=== PATIENT | female | born 1970 | race Caucasian/White ===

== ENCOUNTER 2019-03-18 12:55 | Emergency (ER) | payer BC ==
[2019-03-18] MEDS ORDERED: Zofran 4 MG/2 ML VIAL IV ONE ×2 (14:04→16:35)
[2019-03-18] MEDS ORDERED: Sodium Chloride 0.9% 1000 ML 1,000 ML IV STA (14:04)
[2019-03-18] MEDS ORDERED: MORPHINE SULFATE 4 MG INJ IV ONE (14:04)
[2019-03-18 14:10] LABS: Absolute Neutrophil Ct (ANC) 11.04 (1.4-6.9); BASOPHIL % 0.3 % (0.0-0.4); Basophil (Absolute #) 0.04 (0-0.4); Eosinophil % 0.5 % (0.00-5.0); Eosinophil (Absolute #) 0.07 (0-0.5); Hematocrit 39.9 % (35-47); Hemoglobin 13.3 gm/dl (12.0-16.0); Lymphocyte (Absolute #) 1.04 (1.0-4.6); Lymphocytes % 8.2 % (24.0-44.0); Mean Cell Volume 88.9 fl (78-100); Mean Corpuscular Hemoglobin 29.6 pg (26-32); Mean Corpuscular Hgb Concent. 33.3 g/dl (32-36); Mean Platelet Volume 10.5 fl (7.5-11.0); Monocyte (Absolute #) 0.54 (0.0-1.3); Monocytes % 4.2 % (0.0-12.0); Neutrophil % 86.8 % (36.0-66.0); Platelet Count 360 K/mm3 (150-450); Red Blood Count 4.49 M/mm3 (4.1-5.4); Red Cell Distribution Width 14.1 % (11.5-14.0); White Blood Count 12.7 K/mm3 (4.0-10.5)
[2019-03-18 14:15] LABS: ALBUMIN 4.5 g/dL (3.5-5.0); ALKALINE PHOSPHATASE 90 U/L (38-126); AMYLASE 64 U/L (30-110); ANION GAP 15.1 MEQ/L (5-15); BLOOD UREA NITROGEN 12 mg/dL (7-17); CHLORIDE 103 mmol/L (98-107); Calcium 9.4 mg/dL (8.4-10.2); Carbon Dioxide 25 mmol/L (22-30); Creatinine 1 0.55 mg/dL (0.52-1.04); Glucose 138 mg/dL (74-106); LIPASE 86 U/L (23-300); Potassium 3.7 mmol/L (3.5-5.1); SGOT/AST 43 U/L (14-36); SGPT/ALT 30 U/L (0-35); SODIUM 139 mmol/L (137-145)
[2019-03-18] MEDS ORDERED: MORPHINE SULFATE 4 MG INJ ONE (14:28)
[2019-03-18] MEDS ORDERED: Zofran 4 MG/2 ML VIAL ONE ×2 (14:28→16:36)
[2019-03-18] MEDS ORDERED: Sodium Chloride 0.9% 1000 ML 1,000 ML ONE (14:29)
[2019-03-18 16:15] LABS: Appearance CLEAR (CLEAR); Bacteria RARE /HPF (NEGATIVE); Bilirubin NEGATIVE (NEGATIVE); Blood MODERATE Ery/ul (0-5); Epithelial Cells FEW /HPF (FEW); Glucose NEGATIVE (NEGATIVE); Ketones TRACE (NEGATIVE); Leukocyte Esterase NEGATIVE (NEGATIVE); Mucus SLIGHT /HPF (NEGATIVE); Nitrite NEGATIVE (NEGATIVE); Protein,Urine Dip 30 (Negative); Specific Gravity 1.015 (1.005-1.025); Urobilinogen NEGATIVE mg/dL (0-1); WBC 0-2 /HPF (0-5)
[2019-03-18 16:25] VITALS: BP 117/75; PULSE 88; O2SAT 98
--- NOTE | 2019-03-18 16:43 | ERPHSYRPT ---
- History of Present Illness Time Seen by Provider: 03/18/19 13:36 Historian: patient Exam Limitations: no limitations Patient Subjective Stated Complaint: vomiting since 0100 less than 10 times, headache, chills, Triage Nursing Assessment: pt alert, resp easy, skin w/d/p. walked in, mucus membranes moist Physician History: 38 years old female presented in the ER with chief complaint of sudden onset nausea and vomiting along with upper abdominal pain since morning. She has multiple episodes of projectile and nonbilious vomiting but no hematemesis. She is feeling fatigued and tired. She's not able to hold anything down. Abdominal pain is mild to moderate dull aching in the upper abdomen with no radiation. Denies any diarrhea. No sick contacts. But is brought to Timing/Duration: today, intermittent Quality: cramping Abdominal Pain Onset Location: epigastric Pain Radiation: no radiation Severity of Pain-Max: moderate Severity of Pain-Current: mild Modifying Factors: Improves With: movement Associated Symptoms: nausea, vomiting Allergies/Adverse Reactions: No Known Drug Allergies Allergy (Unverified 03/18/19 13:13) Home Medications: Omeprazole 20 mg DAILY 03/18/19 [History] Hx Influenza Vaccination/Date Given: No Hx Pneumococcal Vaccination/Date Given: No Immunizations Up to Date: Yes - Review of Systems Constitutional: Fatigue Eyes: No Symptoms (PUJA) Ears, Nose, & Throat: No Symptoms Respiratory: No Symptoms Cardiac: No Symptoms Abdominal/Gastrointestinal: Abdominal Pain, Nausea, Vomiting Genitourinary Symptoms: No Symptoms Skin: No Symptoms Neurological: No Symptoms Psychological: No Symptoms Endocrine: No Symptoms Hematologic/Lymphatic: No Symptoms Immunological/Allergic: No Symptoms - Past Medical History Pertinent Past Medical History: Yes GI Medical History: GERD Psycho-Social History: Depression - Past Surgical History Past Surgical History: Yes Female Surgical History: Section - Social History Smoking Status: Never smoker Exposure to second hand smoke: Yes Drug Use: none Patient Lives Alone: No - Female History Hx Last Menstrual Period: last week Hx Now: No - Nursing Vital Signs Nursing Vital Signs: Initial Vital Signs Temperature 117 F 03/18/19 13:08 Pulse Rate 95 H 03/18/19 13:08 Respiratory Rate 18 03/18/19 13:08 Blood Pressure 153/83 03/18/19 13:08 O2 Sat by Pulse Oximetry 95 03/18/19 13:08 Pain Scale Pain Intensity 8 - Physical Exam General Appearance: no apparent distress Eye Exam: eyes nml inspection Ears, Nose, Throat Exam: normal ENT inspection Neck Exam: normal inspection, non-tender, full range of motion Respiratory Exam: normal breath sounds, lungs clear, respiratory distress Cardiovascular Exam: regular rate/rhythm, normal heart sounds, normal peripheral pulses Gastrointestinal/Abdomen Exam: soft, normal bowel sounds, tenderness (mild epigastric/LUQ), No distention, No guarding, No rebound, No hernia Back Exam: normal inspection, normal range of motion, No CVA tenderness Extremity Exam: normal inspection, normal range of motion, pelvis stable Neurologic Exam: alert, oriented x 3, cooperative Skin Exam: normal color SpO2 Interpretation: normal SpO2: 98 O2 Delivery: Room Air - Course Nursing assessment & vital signs reviewed: Yes Ordered Tests: Active Orders 24 hr Category Date Time Status IV Insertion STAT Care 03/18/19 14:04 Active NPO (ED) STAT Care 03/18/19 14:04 Active OBSTR/ACUTE ABDOMEN SERIES Stat Exams 03/18/19 14:05 Taken AMYLASE Stat Lab 03/18/19 14:04 Completed CBC W DIFF Stat Lab 03/18/19 14:04 Completed CMP Stat Lab 03/18/19 14:04 Completed CULTURE,URINE Stat Lab 03/18/19 15:49 Received LIPASE Stat Lab 03/18/19 14:04 Completed UA W/RFX UR CULTURE Stat Lab 03/18/19 15:49 Completed Medication Summary Discontinued Medications Generic Name Dose Route Start Last Admin Trade Name Freq PRN Reason Stop Dose Admin Sodium Chloride 1,000 mls @ 999 mls/hr 03/18/19 14:04 03/18/19 14:31 Sodium Chloride 0.9% 1000 Ml IV 03/18/19 15:04 999 mls/hr .Q1H1M STA Administration Sodium Chloride Confirm 03/18/19 14:29 Sodium Chloride 0.9% 1000 Ml Administered 03/18/19 14:30 Dose 1,000 mls @ ud .ROUTE .STK-MED ONE Morphine Sulfate 4 mg 03/18/19 14:04 03/18/19 14:31 Morphine Sulfate 4 Mg Inj IV 03/18/19 14:05 4 mg STAT ONE Administration Morphine Sulfate Confirm 03/18/19 14:28 Morphine Sulfate 4 Mg Inj Administered 03/18/19 14:29 Dose 4 mg .ROUTE .STK-MED ONE Ondansetron HCl 4 mg 03/18/19 14:04 03/18/19 14:31 Zofran 4 Mg/2 Ml Vial IV 03/18/19 14:05 4 mg STAT ONE Administration Ondansetron HCl Confirm 03/18/19 14:28 Zofran 4 Mg/2 Ml Vial Administered 03/18/19 14:29 Dose 4 mg .ROUTE .STK-MED ONE Ondansetron HCl 4 mg 03/18/19 16:35 Zofran 4 Mg/2 Ml Vial IV 03/18/19 16:36 STAT ONE Lab/Rad Data: Laboratory Result Diagrams 03/18/19 14:04 03/18/19 14:04 Laboratory Results 03/18/19 03/18/19 03/18/19 Range/Units 15:49 14:04 14:04 WBC 12.7 H (4.0-10.5) K/mm3 RBC 4.49 (4.1-5.4) M/mm3 Hgb 13.3 (12.0-16.0) gm/dl Hct 39.9 (35-47) % MCV 88.9 (78-100) fl MCH 29.6 (26-32) pg MCHC 33.3 (32-36) g/dl RDW 14.1 H (11.5-14.0) % Plt Count 360 (150-450) K/mm3 MPV 10.5 (7.5-11.0) fl Gran % 86.8 H (36.0-66.0) % Eos # (Auto) 0.07 (0-0.5) Absolute Lymphs (auto) 1.04 (1.0-4.6) Absolute Monos (auto) 0.54 (0.0-1.3) Lymphocytes % 8.2 L (24.0-44.0) % Monocytes % 4.2 (0.0-12.0) % Eosinophils % 0.5 (0.00-5.0) % Basophils % 0.3 (0.0-0.4) % Absolute Granulocytes 11.04 H (1.4-6.9) Basophils # 0.04 (0-0.4) Sodium 139 (137-145) mmol/L Potassium 3.7 (3.5-5.1) mmol/L Chloride 103 (98-107) mmol/L Carbon Dioxide 25 (22-30) mmol/L Anion Gap 15.1 H (5-15) MEQ/L BUN 12 (7-17) mg/dL Creatinine 0.55 (0.52-1.04) mg/dL Estimated GFR > 60.0 ML/MIN Glucose 138 H (74-106) mg/dL Calcium 9.4 (8.4-10.2) mg/dL Total Bilirubin 0.50 (0.2-1.3) mg/dL AST 43 H (14-36) U/L ALT 30 (0-35) U/L Alkaline Phosphatase 90 (38-126) U/L Serum Total Protein 8.0 (6.3-8.2) g/dL Albumin 4.5 (3.5-5.0) g/dL Amylase 64 (30-110) U/L Lipase 86 (23-300) U/L Urine Color YELLOW (YELLOW) Urine Appearance CLEAR (CLEAR) Urine pH 6.0 (5-6) Ur Specific [place] 1.015 (1.005-1.025) Urine Protein 30 (Negative) Urine Ketones TRACE (NEGATIVE) Urine Blood MODERATE (0-5) Roque/ul Urine Nitrite NEGATIVE (NEGATIVE) Urine Bilirubin NEGATIVE (NEGATIVE) Urine Urobilinogen NEGATIVE (0-1) mg/dL Ur Leukocyte Esterase NEGATIVE (NEGATIVE) Urine WBC (Auto) 0-2 (0-5) /HPF Urine RBC (Auto) 6-10 (0-2) /HPF U Epithel Cells (Auto) FEW (FEW) /HPF Urine Bacteria (Auto) RARE (NEGATIVE) /HPF Urine Mucus (Auto) SLIGHT (NEGATIVE) /HPF Urine Culture Reflexed YES (NO) Urine Glucose NEGATIVE (NEGATIVE) mg/dL - Progress Progress: improved, re-examined Progress Note: she is given IV fluids and Zofran along with a dose of morphine, reevaluation feeling better. Patient workup showed a white count of 12, grossly unremarkable chemistries. Patient back to the bathroom and got nauseated a cane and is given another dose of Zofran. Acute abdomen series did not show any air fluid levels, obstruction, perforation etc. I believe she has while etiology gastritis with vomiting, I would give her Zofran to go home and recommended taking Tylenol as needed. repeated evaluation/exam did not have any peritoneal signs. Do not think she needs any further workup in the ER.discussed signs/symptoms of worsening needing return to the ER which patient seems understanding 03/18/19 16:41 Counseled pt/family regarding: lab results, diagnosis, need for follow-up, rad results - Departure Departure Disposition: Home Clinical Impression: Upper abdominal pain, unspecified Nausea & vomiting Qualifiers: Vomiting type: unspecified Vomiting Intractability: non-intractable Qualified Code(s): R11.2 - Nausea with vomiting, unspecified Condition: Stable Critical Care Time: No Referrals: ALEX STEVENS DO [Primary Care Provider] - Instructions: Vomiting -- Adult Additional Instructions: take Tylenol as needed for pain. Take Zofran as needed for nausea or vomiting. Drink plenty of fluids. Follow up with primary care physician for reevaluation. Return to ER for intractable vomiting, abdominal pain, fever chills etc.
--- NOTE | 2019-03-18 20:10 | XRAY ---
Indication: Nausea and emesis. Comparison: Chest exam January 10, 2019. 2 views of the abdomen nonacute and nonobstructed with mild scattered colonic fecal debris. Solid organs unremarkable. Osseous structures intact with mild multilevel degenerative spondylosis and mild bilateral hip degenerative arthropathy. Single PA chest again demonstrates normal heart, lungs, and bony thorax again with incidental left base calcified granuloma. Impression: Negative abdomen. Stable nonacute one view chest again with evidence for old granulomatous disease.
== END 2019-03-18 16:50 | disposition home or self-care (01) ==
LOC: ED 12:55
DX: R10.10 Upper abdominal pain, unspecified (principal)
CPT/HCPCS: 36000; 36415; 74022; 80053; 81001; 82150; 83690; 85025; 87086; 96360; 96374; 96375; 96376; 99284; J2270; J2405

== ENCOUNTER 2020-09-30 07:02 | Day surgery (SDC) | payer BC ==
[2020-09-30] MEDS ORDERED: Lactated Ringers 1,000 ML IV ONE (07:20)
[2020-09-30] MEDS ORDERED: CEFAZOLIN 2 GM-D5W BAG** 2 GM/50 ML ML IV ONE (07:20)
[2020-09-30] MEDS ORDERED: Lactated Ringers 1,000 ML IV SCH (07:30)
[2020-09-30] MEDS ORDERED: CEFAZOLIN 2 GM-D5W BAG** 2 GM/50 ML ML IV SCH (07:30)
[2020-09-30] MEDS ORDERED: Versed 2 MG/2 ML Injection ONE (08:23)
[2020-09-30] MEDS ORDERED: Decadron 4 MG INJ ONE ×2 (08:23→08:59)
[2020-09-30] MEDS ORDERED: Xylocaine-Mpf 2% 5 Ml Vial ONE ×2 (08:23→08:59)
[2020-09-30] MEDS ORDERED: SUBLIMAZE 100 MCG/2 ML ONE (08:23)
[2020-09-30 08:38] LABS: Appearance SLIGHTLY CLOUDY (CLEAR); Bilirubin NEGATIVE (NEGATIVE); Blood NEGATIVE Ery/ul (0-5); Epithelial Cells FEW /HPF (FEW); Glucose NEGATIVE (NEGATIVE); Ketones NEGATIVE (NEGATIVE); Leukocyte Esterase NEGATIVE (NEGATIVE); Mucus SLIGHT /HPF (NEGATIVE); Nitrite NEGATIVE (NEGATIVE); Protein,Urine Dip NEGATIVE (Negative); Urobilinogen NEGATIVE mg/dL (0-1)
[2020-09-30] MEDS ORDERED: Zofran 4 MG/2 ML VIAL ONE (08:59)
[2020-09-30] MEDS ORDERED: DIPRIVAN 200 MG/20 ML IV ONE (08:59)
[2020-09-30 10:28] VITALS: PULSE 75
[2020-09-30 10:37] VITALS: BP 139/87; O2SAT 96
--- NOTE | 2020-10-01 10:05 | OP ---
SURGERY DATE/TIME: 09/30/2020 0900 PREOPERATIVE DIAGNOSIS: Abnormal uterine bleeding. POSTOPERATIVE DIAGNOSIS: Abnormal uterine bleeding. PROCEDURE: Hysteroscopy, D&C with NovaSure ablation. SURGEON: Andrew Gonsales D.O. ELEVATOR CONSTRUCTOR: Sachin Mueller neurology technologist. ANESTHESIA: General. ESTIMATED BLOOD LOSS: Minimal. COMPLICATIONS: None. INDICATIONS: The risks, benefits, indications and alternatives of the procedure were reviewed with the patient prior to the procedure. The patient understood the risk of infection, bleeding, bowel injury, bladder injury, ureteral injury, uterine perforation, pelvic infection, thromboembolic disorder associated with the surgery and desires to have this surgery as a possible means to alleviate her medical condition. DESCRIPTION OF PROCEDURE AND FINDINGS: At this point the patient is taken to the operating room, given general sedation, placed in dorsal lithotomy position, prepped and draped in the usual sterile fashion. A weighted speculum is then placed in the patient's vagina and the anterior lip of the cervix is grasped with a single tooth tenaculum. Endocervical dilators were advanced through the endocervical canal as a means to dilate the cervix and the uterus was sounded to approximately 9 cm. From this point, a 5 mm hysteroscope was then placed in through the endocervical canal where visualization of endometrial lining appeared to be within normal limits with no gross abnormalities located within the endometrial cavity. From this point the hysteroscope was then removed and the curette was then placed into the fundus of the uterus and curettage is performed in all quadrants of the uterus retrieving a moderate amount of tissue. From this point hemostasis is obtained. At this point the NovaSure was then placed was engaged and placed into the fundus of the uterus retracted approximately 1 cm with a length 6.5 cm where the machine was turned on for an ablative time of 44 seconds. At the completion of the ablation the instrument was disengaged and removed from the uterine cavity where it had a width of 2.8 cm. After removal of the Novasure, all instruments were then removed from the patient's vaginal region. The patient was then taken out of dorsal lithotomy position, was taken out of anesthesia and was then taken to the recovery room in stable condition. All instruments and laps were accounted for x2.
== END 2020-09-30 10:32 | disposition home or self-care (01) ==
LOC: SDC 07:02
PROVIDERS: ATTEND Obstetrics & Gynecology
DX: N93.9 Abnormal uterine and vaginal bleeding, unspecified (principal)
CPT/HCPCS: 36415; 81001; 84702; J0690; J1100; J2250; J2405; J2704; J3010

== ENCOUNTER 2022-04-07 01:06 | Emergency (ER) | payer SELFPAY ==
[2022-04-07 01:53] LABS: Absolute Neutrophil Ct (ANC) 4.74 x10^3/uL (1.4-6.9); BASOPHIL % 0.9 % (0.0-0.4); Basophil (Absolute #) 0.06 x10^3/uL (0-0.4); Eosinophil (Absolute #) 0.14 x10^3/uL (0-0.5); Hemoglobin 14.2 g/dL (12.0-16.0); IMMATURE GRAN # 0.02 x10^3u/L (0.00-0.03); IMMATURE GRAN % 0.3 % (0.00-0.4); Lymphocyte (Absolute #) 1.53 x10^3/uL (1.0-4.6); Lymphocytes % 22.1 % (24.0-44.0); Mean Corpuscular Hemoglobin 31.8 pg (26-32); Mean Corpuscular Hgb Concent. 33.8 g/dL (32-36); Mean Platelet Volume 10.3 fL (7.5-11.0); Monocyte (Absolute #) 0.42 x10^3/uL (0.0-1.3); Monocytes % 6.1 % (0.0-12.0); Neutrophil % 68.6 % (36.0-66.0); Platelet Count 270 x10^3/uL (150-450); Red Blood Count 4.47 x10^6/uL (4.1-5.4); Red Cell Distribution Width 12.2 % (11.5-14.0); White Blood Count 6.9 x10^3/uL (4.0-10.5)
[2022-04-07 02:01] LABS: Appearance Clear (Clear); Bacteria None Seen /HPF (None Seen); Bilirubin Negative (Negative); Blood Trace (Negative); Epithelial Cells None Seen /HPF (None Seen); Glucose, Urine Negative (Negative); Hyaline Casts NONE SEEN /LPF (0-2); Ketones Negative (Negative); Leukocyte Esterase Negative (Negative); Nitrite Negative (Negative); Protein,Urine Dip Negative (Negative); RBC 0-2 /HPF (0-5); Specific Gravity <=1.005 (1.005-1.030); Urobilinogen 0.2 mg/dL (0.2); WBC 0-2 /HPF (0-5)
[2022-04-07 02:05] LABS: ACETAMINOPHEN < 10 ug/ml (10-30); ALBUMIN 4.1 g/dL (3.5-5.0); ALKALINE PHOSPHATASE 74 U/L (38-126); ANION GAP 11.9 MEQ/L (5-15); BLOOD UREA NITROGEN 9 mg/dL (7-17); CHLORIDE 110 mmol/L (98-107); Calcium 8.8 mg/dL (8.4-10.2); Carbon Dioxide 26 mmol/L (22-30); Creatinine 1 0.57 mg/dL (0.52-1.04); EST GLOMERULAR FILTRATION RATE > 60.0 ML/MIN; ETHYL ALCOHOL 112 mg/dL (0-10); Glucose 128 mg/dL (74-106); Potassium 3.9 mmol/L (3.5-5.1); SALICYLATE < 1.0 mg/dL (2-20); SGOT/AST 27 U/L (14-36); SGPT/ALT 29 U/L (0-35); SODIUM 144 mmol/L (137-145); Total Protein 6.8 g/dL (6.3-8.2)
[2022-04-07 02:07] LABS: ADD URINE CULTURE? NO (NO)
[2022-04-07 02:12] LABS: Amphetamine,Urine NEGATIVE (NEGATIVE); Barbiturate,Urine NEGATIVE (NEGATIVE); Benzodiazepine,Urine NEGATIVE (NEGATIVE); Cocaine,Urine NEGATIVE (NEGATIVE); Methadone,Urine NEGATIVE (NEGATIVE); Opiate,Urine NEGATIVE (NEGATIVE); PCP,Urine NEGATIVE (NEGATIVE); THC,Urine NEGATIVE (NEGATIVE)
--- NOTE | 2022-04-07 02:13 | ERPHSYRPT ---
- History of Present Illness Time Seen by Provider: 04/07/22 01:25 Source: patient, EMS Exam Limitations: intoxication Patient Subjective Stated Complaint: suicidial ideations without a plan Triage Nursing Assessment: pt presents to ED via medic 1, pt alert and oriented x3, tearful, pt is recently going through a divorce of her of 25 years, pt has drank 4 or 5 bottles of wine tonight at home and called 911 d/t patient stating she didn't want to live anymore. pt states "I just want to be done. I don't want to live. I don't want to be here." pt denies plan, pt has hx of wrist cutting during adolescence and an overdose when she was 28, pt did not attempt to harm self tonight Physician History: This is a 51-year-old obese white female patient of Dr. Shabazz who is going through divorce and has a history of depression. She told her that she does not want to live anymore and has continued to states that in the emergency department. She does not have a plan. 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 Her came back to the house and because of her statements and a history of suicidal issues as an adolescent, he contacted the ambulance and patient was brought into the emergency department voluntarily. She does not have a headache. She has no chest pain. She has no shortness of breath. She has no abdominal pain. She has no nausea symptoms or vomiting at this time. She has no flulike symptoms. Patient has history of hypertension, hypothyroidism, gastroesophageal reflux disease and depression Timing/Duration: today Severity of Symptoms-Max: moderate Severity of Symptoms-Current: moderate Context related to: spouse, other (Patient going through divorce at this time) Suicidal thoughts: other (Thoughts at this time no specific plan) Associated Symptoms: depressed, ingestion (Alcohol) Previous symptoms: same symptoms as today (As an adolescent) Allergies/Adverse Reactions: lisinopril Allergy (Verified 04/07/22 01:13) Cough Home Medications: Amlodipine Besylate [Norvasc] 5 mg PO DAILY 09/23/20 [History] Cyanocobalamin (Vitamin B-12) [Vitamin B-12] 1,000 mcg PO UD 09/23/20 [History] Ergocalciferol (Vitamin D2) [Vitamin D] 50,000 unit PO WEEKLY 09/23/20 [History] Esomeprazole Magnesium [Nexium] 40 mg PO DAILY 09/23/20 [History] Ibuprofen [Ibu] 400 mg PO BID 09/23/20 [History] Levothyroxine Sodium [Levothyroxine] 75 mcg PO DAILY 09/23/20 [History] Multivitamin [One-Daily Multi-Vitamin] 1 each PO DAILY 09/23/20 [History] Paroxetine HCl 20 mg [Paxil 20 MG] 20 mg PO HS 09/23/20 [History] Hx Tetanus, Diphtheria Vaccination/Date Given: Yes Hx Influenza Vaccination/Date Given: No Hx Pneumococcal Vaccination/Date Given: No Immunizations Up to Date: Yes Travel Risk - International Travel Have you traveled outside of the country in past 3 weeks: No - Coronavirus Screening Are you exhibiting any of the following symptoms?: No Close contact with a COVID-19 positive Pt in past 14-21 Days: No - Vaccine Status Have you recieved a Covid-19 vaccination: Yes 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: [facility] - Past Medical History Pertinent Past Medical History: Yes Neurological History: No Pertinent History ENT History: No Pertinent History Cardiac History: Hypertension Respiratory History: Sleep Apnea Endocrine Medical History: No Pertinent History Musculoskeletal History: Arthritis GI Medical History: GERD, Ulcer History: Other Psycho-Social History: Depression Female Reproductive Disorders: Abnormal Uterine Bleeding Other Medical History: frequent bladder infections - Past Surgical History Past Surgical History: Yes Neuro Surgical History: No Pertinent History Cardiac: No Pertinent History Respiratory: No Pertinent History Gastrointestinal: No Pertinent History Genitourinary: No Pertinent History Musculoskeletal: No Pertinent History Female Surgical History: Section, Tubal Ligation Other Surgical History: hemangioma removed from neck - Social History Smoking Status: Never smoker Exposure to second hand smoke: Yes Drug Use: none Patient Lives Alone: Yes - Review of Systems Constitutional: No Symptoms Eyes: No Symptoms Ears, Nose, & Throat: No Symptoms Respiratory: No Symptoms Cardiac: No Symptoms Abdominal/Gastrointestinal: No Symptoms Genitourinary Symptoms: No Symptoms Musculoskeletal: No Symptoms Skin: No Symptoms Neurological: No Symptoms Psychological: Depression, Suicidal Ideations Endocrine: No Symptoms Hematologic/Lymphatic: No Symptoms Immunological/Allergic: No Symptoms All Other Systems: Reviewed and Negative - Nursing Vital Signs Nursing Vital Signs: Initial Vital Signs Temperature 98.9 F 04/07/22 01:14 Pulse Rate 81 04/07/22 01:14 Respiratory Rate 18 04/07/22 01:14 Blood Pressure 153/102 04/07/22 01:14 O2 Sat by Pulse Oximetry 96 04/07/22 01:14 Pain Scale Pain Intensity 0 - Physical Exam General Appearance: no apparent distress, alert, anxiety, obese Eyes, Ears, Nose, Throat Exam: normal ENT inspection, moist mucous membranes Neck Exam: normal inspection, non-tender, supple, full range of motion Respiratory Exam: normal breath sounds, lungs clear, airway intact, No chest tenderness, No respiratory distress Cardiovascular Exam: regular rate/rhythm, normal heart sounds, normal peripheral pulses Gastrointestinal/Abdominal Exam: soft, normal bowel sounds, No tenderness Extremities Exam: normal inspection, normal range of motion, No evidence of injury Neurological Exam: alert, calm, 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 The re is no evidence of any acute ischemic changes.) Ordered Tests: Active Orders 24 hr Category Date Time Status EKG-ER Only STAT Care 04/07/22 01:28 Active Psychiatric Consult STAT Cons 04/07/22 03:04 Active ACETAMINOPHEN Stat Lab 04/07/22 01:50 Completed CBC W DIFF Stat Lab 04/07/22 01:50 Completed CMP Stat Lab 04/07/22 01:50 Completed ETHYL ALCOHOL Stat Lab 04/07/22 01:50 Completed SALICYLATE Stat Lab 04/07/22 01:50 Completed UA W/RFX UR CULTURE Stat Lab 04/07/22 01:33 Completed Urine Triage Profile Stat Lab 04/07/22 01:33 Completed Medication Summary Discontinued Medications Generic Name Dose Route Start Last Admin Trade Name Freq PRN Reason Stop Dose Admin Ibuprofen 600 mg 04/07/22 04:08 04/07/22 04:10 Ibuprofen 600 Mg Tablet PO 04/07/22 04:09 600 mg STAT ONE Administration Ibuprofen Confirm 04/07/22 04:09 Ibuprofen 600 Mg Tablet Administered 04/07/22 04:10 Dose 600 mg .ROUTE .STK-MED ONE Lab/Rad Data: Laboratory Result Diagrams 04/07/22 01:50 04/07/22 01:50 Laboratory Results 04/07/22 04/07/22 04/07/22 Range/Units 01:50 01:50 01:33 WBC 6.9 (4.0-10.5) x10^3/uL RBC 4.47 (4.1-5.4) x10^6/uL Hgb 14.2 (12.0-16.0) g/dL Hct 42.0 (35-47) % MCV 94.0 (78-100) fL MCH 31.8 (26-32) pg MCHC 33.8 (32-36) g/dL RDW 12.2 (11.5-14.0) % Plt Count 270 (150-450) x10^3/uL MPV 10.3 (7.5-11.0) fL Gran % 68.6 H (36.0-66.0) % Immature Gran % (Auto) 0.3 (0.00-0.4) % Nucleat RBC Rel Count 0.0 (0.00-0.1) % Eos # (Auto) 0.14 (0-0.5) x10^3/uL Immature Gran # (Auto) 0.02 (0.00-0.03) x10^3u/L Absolute Lymphs (auto) 1.53 (1.0-4.6) x10^3/uL Absolute Monos (auto) 0.42 (0.0-1.3) x10^3/uL Absolute Nucleated RBC 0.00 (0.00-0.01) x10^3u/L Lymphocytes % 22.1 L (24.0-44.0) % Monocytes % 6.1 (0.0-12.0) % Eosinophils % 2.0 (0.00-5.0) % Basophils % 0.9 (0.0-0.4) % Absolute Granulocytes 4.74 (1.4-6.9) x10^3/uL Basophils # 0.06 (0-0.4) x10^3/uL Sodium 144 (137-145) mmol/L Potassium 3.9 (3.5-5.1) mmol/L Chloride 110 H (98-107) mmol/L Carbon Dioxide 26 (22-30) mmol/L Anion Gap 11.9 (5-15) MEQ/L BUN 9 (7-17) mg/dL Creatinine 0.57 (0.52-1.04) mg/dL Estimated GFR > 60.0 ML/MIN Glucose 128 H (74-106) mg/dL Calcium 8.8 (8.4-10.2) mg/dL Total Bilirubin 0.30 (0.2-1.3) mg/dL AST 27 (14-36) U/L ALT 29 (0-35) U/L Alkaline Phosphatase 74 (38-126) U/L Serum Total Protein 6.8 (6.3-8.2) g/dL Albumin 4.1 (3.5-5.0) g/dL Urine Color (Yellow) Urine Appearance (Clear) Urine pH (4.6-8.0) Ur Specific [place] (1.005-1.030) Urine Protein (Negative) Urine Glucose (UA) (Negative) mg/dL Urine Ketones (Negative) Urine Blood (Negative) Urine Nitrite (Negative) Urine Bilirubin (Negative) Urine Urobilinogen (0.2) mg/dL Ur Leukocyte Esterase (Negative) U Hyaline Cast (Auto) (0-2) /LPF Urine Microscopic RBC (0-5) /HPF Urine Microscopic WBC (0-5) /HPF Ur Epithelial Cells (None Seen) /HPF Urine Bacteria (None Seen) /HPF Urine Culture Reflexed (NO) Salicylates < 1.0 L (2-20) mg/dL Urine Opiates Level (NEGATIVE) Ur Methadone (NEGATIVE) Acetaminophen < 10 L (10-30) ug/ml Urine Barbiturates (NEGATIVE) Ur Phencyclidine (PCP) (NEGATIVE) Urine Amphetamine (NEGATIVE) U Benzodiazepine Level (NEGATIVE) Urine Cocaine (NEGATIVE) Urine Marijuana (THC) (NEGATIVE) Ethyl Alcohol 112 H (0-10) mg/dL Influenza Type A Ag NEGATIVE (NEGATIVE) Influenza Type B Ag NEGATIVE (NEGATIVE) RSV (PCR) NEGATIVE (Negative) SARS-CoV-2 (PCR) NEGATIVE (NEGATIVE) 02/15/23 02/15/23 Range/Units 01:33 01:33 WBC (4.0-10.5) x10^3/uL RBC (4.1-5.4) x10^6/uL Hgb (12.0-16.0) g/dL Hct (35-47) % MCV (78-100) fL MCH (26-32) pg MCHC (32-36) g/dL RDW (11.5-14.0) % Plt Count (150-450) x10^3/uL MPV (7.5-11.0) fL Gran % (36.0-66.0) % Immature Gran % (Auto) (0.00-0.4) % Nucleat RBC Rel Count (0.00-0.1) % Eos # (Auto) (0-0.5) x10^3/uL Immature Gran # (Auto) (0.00-0.03) x10^3u/L Absolute Lymphs (auto) (1.0-4.6) x10^3/uL Absolute Monos (auto) (0.0-1.3) x10^3/uL Absolute Nucleated RBC (0.00-0.01) x10^3u/L Lymphocytes % (24.0-44.0) % Monocytes % (0.0-12.0) % Eosinophils % (0.00-5.0) % Basophils % (0.0-0.4) % Absolute Granulocytes (1.4-6.9) x10^3/uL Basophils # (0-0.4) x10^3/uL Sodium (137-145) mmol/L Potassium (3.5-5.1) mmol/L Chloride (98-107) mmol/L Carbon Dioxide (22-30) mmol/L Anion Gap (5-15) MEQ/L BUN (7-17) mg/dL Creatinine (0.52-1.04) mg/dL Estimated GFR ML/MIN Glucose (74-106) mg/dL Calcium (8.4-10.2) mg/dL Total Bilirubin (0.2-1.3) mg/dL AST (14-36) U/L ALT (0-35) U/L Alkaline Phosphatase (38-126) U/L Serum Total Protein (6.3-8.2) g/dL Albumin (3.5-5.0) g/dL Urine Color Yellow (Yellow) Urine Appearance Clear (Clear) Urine pH 7.0 (4.6-8.0) Ur Specific [place] <=1.005 (1.005-1.030) Urine Protein Negative (Negative) Urine Glucose (UA) Negative (Negative) mg/dL Urine Ketones Negative (Negative) Urine Blood Trace (Negative) Urine Nitrite Negative (Negative) Urine Bilirubin Negative (Negative) Urine Urobilinogen 0.2 (0.2) mg/dL Ur Leukocyte Esterase Negative (Negative) U Hyaline Cast (Auto) NONE SEEN (0-2) /LPF Urine Microscopic RBC 0-2 (0-5) /HPF Urine Microscopic WBC 0-2 (0-5) /HPF Ur Epithelial Cells None Seen (None Seen) /HPF Urine Bacteria None Seen (None Seen) /HPF Urine Culture Reflexed NO (NO) Salicylates (2-20) mg/dL Urine Opiates Level NEGATIVE (NEGATIVE) Ur Methadone NEGATIVE (NEGATIVE) Acetaminophen (10-30) ug/ml Urine Barbiturates NEGATIVE (NEGATIVE) Ur Phencyclidine (PCP) NEGATIVE (NEGATIVE) Urine Amphetamine NEGATIVE (NEGATIVE) U Benzodiazepine Level NEGATIVE (NEGATIVE) Urine Cocaine NEGATIVE (NEGATIVE) Urine Marijuana (THC) NEGATIVE (NEGATIVE) Ethyl Alcohol (0-10) mg/dL Influenza Type A Ag (NEGATIVE) Influenza Type B Ag (NEGATIVE) RSV (PCR) (Negative) SARS-CoV-2 (PCR) (NEGATIVE) - Progress Progress: unchanged, re-examined Progress Note: 04/07/22 06:36 This patient's medical issue is of moderate complexity this is based on the patient's complaint, medical history obtained from the patient and from the paramedics as well as the patient's . In addition I used the information from the patient's physical exam to determine what would be included in my work-up. This included a twelve-lead EKG, urinalysis and blood work. The results of the blood work and urinalysis as well as a twelve-lead EKG were reviewed by me and discussed with the patient. In addition we sent the patient information to [facility] inpatient psychiatric facility. Nurse mental health worker Khadra Medina reviewed the information. The case was then staffed with Dr. Guillaume who after review of the above results, stated the patient should be placed in an inpatient facility. [facility] had beds available for this patient and she was transferred to their facility. Counseled pt/family regarding: lab results, diagnosis Medical Desision Making - Independent Historian Additional History obtained from: Spouse, Video Tape Duplicator/EMT - Discussion of managment Care discussed with:: specialist (Khadra Medina [facility] health worker and Dr. Guillaume at [facility]) Reviewed:: Test results Agreed on:: Treatment plan Will see patient: in hospital - Diagnostic Testing Diagnostic Testing: Diagnostic tests were ordered,analyzed, and reviewed by me and used in my [facility] decision making for this patient. Radiologic studies (if ordered) were read by me initially then discussed with the radiologist . - Risk of complications Low Risk: Low risk of morbidity from additional dx testing or treatment - Departure Departure Disposition: Transfer Clinical Impression: Depression, Alcohol intoxication Condition: Stable Critical Care Time: No Referrals: ALEX SHABAZZ DO [Primary Care Provider] - Follow up/PCP as directed
[2022-04-07 02:29] LABS: INFLUENZA A NEGATIVE (NEGATIVE); INFLUENZA B NEGATIVE (NEGATIVE); RESPIRATORY SYNCTIAL VIRUS NEGATIVE (Negative); SARS-CoV-2 Xpert Express NEGATIVE (NEGATIVE)
[2022-04-07 03:05] VITALS: BP 118/72
[2022-04-07] MEDS ORDERED: MOTRIN 600 MG PO ONE (04:08)
[2022-04-07] MEDS ORDERED: MOTRIN 600 MG ONE (04:09)
[2022-04-07 05:05] VITALS: PULSE 64
[2022-04-07 06:41] VITALS: O2SAT 96
== END 2022-04-07 05:28 ==
LOC: ED 01:06
DX: F32.A Depression, unspecified (principal); F10.129 Alcohol abuse with intoxication, unspecified; Y90.5 Blood alcohol level of 100-119 mg/100 ml; R45.851 Suicidal ideations; Z63.5 Disruption of family by separation and divorce; I10 Essential (primary) hypertension; Z79.899 Other long term (current) drug therapy
CPT/HCPCS: 0241U; 36415; 80053; 80307; 81001; 85025; 90791; 93005; 99285; Q3014; A9270-GY; G0480